=== PATIENT | female | born 1995 | race Caucasian/White ===

== ENCOUNTER 2018-03-11 07:58 | Emergency (ER) | payer SELFPAY ==
[~2018-03-11] VITALS: Ht 157.5 cm; Wt 45.5 kg
[2018-03-11] MEDS ORDERED: ondansetron/PF 4mg/2ml inj IV ONE (08:15)
[2018-03-11] MEDS ORDERED: normal saline 1000ML IV soln IVB ONE ×2 (08:15→09:00)
[2018-03-11] MEDS ORDERED: insulin glargine (Lantus) pen - multi-dose SQ ONE (08:20)
[2018-03-11] MEDS ORDERED: insulin regular, human 10 units/0.1 ml syringe IV ONE (08:20)
[2018-03-11] MEDS ORDERED: morphine 4 MG/ML inj SYRINge IV ONE ×2 (08:50→10:00)
[2018-03-11] MEDS ORDERED: ESCI5TAB PO (08:54)
[2018-03-11 08:55] LABS: CLARITY,URINE CLEAR (Clear); COLOR,URINE STRAW (Yellow); GLUCOSE, URINE >=1000 mg/dl (Neg); KETONES,URINE 40 mg/dl (Neg); LEUKOCYTE ESTERASE ,URINE NEGATIVE (Neg); NITRITES, URINE NEGATIVE (Neg); OCCULT BLOOD,URINE NEGATIVE (Neg); PROTEIN,URINE NEGATIVE (Neg); UROBILINOGEN,URINE 0.2 E.U/dL (0.2-1.0)
[2018-03-11 08:56] LABS: UA COLLECTION TYPE CLN CATCH MIDSTREAM
[2018-03-11] MEDS ORDERED: LANTUS SQ ×2 (08:56)
[2018-03-11] MEDS ORDERED: FAMO-128 PO (09:00)
[2018-03-11] MEDS ORDERED: INSU100V11 SQ (09:00)
[2018-03-11 09:11] LABS: ALANINE AMINOTRANSFERASE 62 U/L (12-78); ALBUMIN 3.2 G/DL (3.4-5.0); ALBUMIN/GLOBULIN RATIO 0.9 (1.1-1.5); ALKALINE PHOSPHATASE 194 IU/L (46-116); ANION GAP 16 (8-16); ASPARTATE AMINO TRANSFERASE 60 U/L (10-37); BILIRUBIN,TOTAL 0.6 MG/DL (0.1-1.0); BLOOD UREA NITROGEN 19 MG/DL (7-18); BUN/CREATININE RATIO 23.8 (6.6-38.0); CALCIUM 8.8 MG/DL (8.5-10.1); CHLORIDE 92 MMOL/L (99-107); LIPASE 109 U/L (73-393); POTASSIUM 4.9 MMOL/L (3.5-5.1); SODIUM 129 MMOL/L (135-145); TOTAL CARBON DIOXIDE 21.4 MMOL/L (24-32); TOTAL PROTEIN 6.6 G/DL (6.4-8.2); eGFR 88 ML/MIN
[2018-03-11 09:13] LABS: GLUCOSE 618 MG/DL (70-104)
[2018-03-11 09:16] LABS: BACTERIA,URINE FEW /HPF (Neg); MUCUS STRANDS NONE SEEN /LPF (Neg); RBC,URINE NONE SEEN /HPF (0-2); SQUAMOUS EPITHELIAL CELL,UR FEW /LPF (FEW); WBC,URINE 0-4 /HPF (0-4)
[2018-03-11 09:32] LABS: HEMATOCRIT 36.5 % (35.0-45.0); HEMOGLOBIN 12.8 g/dl (12.0-16.0); RED BLOOD COUNT 3.71 X10'6 (4.20-5.60)
[2018-03-11 09:33] LABS: BASOPHILS % (AUTO) 0.6 % (0-1); EOSINOPHILS # (AUTO) 0.1 X10'3 (0-0.9); EOSINOPHILS % (AUTO) 2.2 % (0-6); LYMPHOCYTES # (AUTO) 1.4 X10'3 (1.1-4.8); LYMPHOCYTES % (AUTO) 22.7 % (21-51); MEAN CORPUSCULAR HEMOGLOBIN 34.4 PG (27.0-31.0); MEAN CORPUSCULAR VOLUME 98.2 FL (78-98); MEAN PLATELET VOLUME 7.6 FL (7.4-10.4); MONOCYTES # (AUTO) 0.3 X10'3 (0-0.9); MONOCYTES % (AUTO) 5.5 % (2-12); NEUTROPHILS # (AUTO) 4.2 X10'3 (1.8-7.7); RED CELL DISTRIBUTION WIDTH 11.4 % (11.5-14.5)
[2018-03-11 09:56] LABS: URINE HCG NEGATIVE (NEG)
[2018-03-11 11:03] VITALS: BP 105/65
[2018-03-11 15:01] LABS: PLATELET COUNT 350 X10'3 (140-440)
== END 2018-03-11 11:05 | disposition home or self-care (01) ==
LOC: ER 07:59
DX: E10.65 Type 1 diabetes mellitus with hyperglycemia (principal); R10.84 Generalized abdominal pain; R11.2 Nausea with vomiting, unspecified; Z88.1 Allergy status to other antibiotic agents; Z79.899 Other long term (current) drug therapy
CPT/HCPCS: 36415; 80053; 81001; 81025; 82948; 83690; 85025; 96361; 96372; 96374; 96375; 96376; 99284; J1815; J2270; J2405; J7030

== ENCOUNTER → 2018-03-25 | Emergency (ER) | payer BC, OTHER ==
[~2018-03-25] VITALS: Ht 154.9 cm; Wt 50.0 kg
[~2018-03-25] MED LIST: ESCI5TAB PO; INSU100V11 SQ; LANTUS SQ; PANT-47 PO; insulin regular, human 10 units/0.1 ml syringe SQ ONE; ketorolac trometh. 30mg/ml inj. IM ONE; normal saline 1000ML IV soln IVB ONE
[2018-03-25 19:18] LABS: BASOPHILS % (AUTO) 0.6 % (0-1); EOSINOPHILS # (AUTO) 0.1 X10'3 (0-0.9); EOSINOPHILS % (AUTO) 1.3 % (0-6); HEMATOCRIT 37.9 % (35.0-45.0); HEMOGLOBIN 12.8 g/dl (12.0-16.0); LYMPHOCYTES # (AUTO) 1.3 X10'3 (1.1-4.8); LYMPHOCYTES % (AUTO) 22.1 % (21-51); MEAN CORPUSCULAR HEMOGLOBIN 32.7 PG (27.0-31.0); MEAN CORPUSCULAR HGB CONC 33.9 % (33.0-36.5); MEAN CORPUSCULAR VOLUME 96.4 FL (78-98); MEAN PLATELET VOLUME 7.8 FL (7.4-10.4); MONOCYTES # (AUTO) 0.3 X10'3 (0-0.9); MONOCYTES % (AUTO) 4.8 % (2-12); NEUTROPHILS # (AUTO) 4.1 X10'3 (1.8-7.7); NEUTROPHILS % (AUTO) 71.2 % (42-75); PLATELET COUNT 280 X10'3 (140-440); RED BLOOD COUNT 3.93 X10'6 (4.20-5.60); RED CELL DISTRIBUTION WIDTH 11.2 % (11.5-14.5); WHITE BLOOD COUNT 5.8 X10'3 (4.5-11.0)
[2018-03-25 19:26] LABS: ALANINE AMINOTRANSFERASE 134 U/L (12-78); ALBUMIN 3.6 G/DL (3.4-5.0); ALBUMIN/GLOBULIN RATIO 0.9 (1.1-1.5); ALKALINE PHOSPHATASE 187 IU/L (46-116); ANION GAP 13 (8-16); ASPARTATE AMINO TRANSFERASE 244 U/L (10-37); BILIRUBIN,TOTAL 0.3 MG/DL (0.1-1.0); BLOOD UREA NITROGEN 15 MG/DL (7-18); BUN/CREATININE RATIO 17.2 (6.6-38.0); CALCIUM 9.7 MG/DL (8.5-10.1); CHLORIDE 96 MMOL/L (99-107); CREATININE 0.87 MG/DL (0.40-0.90); MAGNESIUM 1.8 MG/DL (1.5-2.4); POTASSIUM 4.4 MMOL/L (3.5-5.1); SODIUM 137 MMOL/L (135-145); TOTAL CARBON DIOXIDE 27.8 MMOL/L (24-32); TOTAL PROTEIN 7.5 G/DL (6.4-8.2); eGFR 80 ML/MIN
[2018-03-25 20:09] LABS: INR 0.9 INR; PARTIAL THROMBOPLASTIN TIME 23 SECONDS (22-32); PROTHROMBIN TIME 9.3 SECONDS (9.0-12.0)
[2018-03-25 20:11] LABS: CLARITY,URINE CLEAR (Clear); COLOR,URINE STRAW (Yellow); GLUCOSE, URINE >=1000 mg/dl (Neg); KETONES,URINE NEGATIVE (Neg); LEUKOCYTE ESTERASE ,URINE NEGATIVE (Neg); NITRITES, URINE NEGATIVE (Neg); OCCULT BLOOD,URINE NEGATIVE (Neg); PROTEIN,URINE NEGATIVE (Neg); UROBILINOGEN,URINE 0.2 E.U/dL (0.2-1.0)
[2018-03-25 20:16] LABS: ACETAMINOPHEN < 2.0 UG/ML (10-30); ETHANOL < 0.010 GM/DL (0.0-0.010)
[2018-03-25 20:17] LABS: URINE AMPHETAMINE SCREEN NEGATIVE (Neg); URINE BARBITUATE SCREEN NEGATIVE (Neg); URINE BENZODIAZEPINES SCREEN NEGATIVE (Neg); URINE CANNABINOID SCREEN NEGATIVE (Neg); URINE COCAINE SCREEN NEGATIVE (Neg); URINE METHADONE SCREEN NEGATIVE (Neg); URINE OPIATE SCREEN POSITIVE (Neg); URINE PHENCYCLIDINE SCREEN NEGATIVE (Neg)
[2018-03-25 20:18] LABS: GLUCOSE 483 MG/DL (70-104)
[2018-03-25 20:19] LABS: UA COLLECTION TYPE CLN CATCH MIDSTREAM
[2018-03-25 20:20] LABS: BACTERIA,URINE FEW /HPF (Neg); MUCUS STRANDS NONE SEEN /LPF (Neg); RBC,URINE NONE SEEN /HPF (0-2); SQUAMOUS EPITHELIAL CELL,UR FEW /LPF (FEW); WBC,URINE NONE SEEN /HPF (0-4)
[2018-03-25 20:44] VITALS: BP 106/68
== END | disposition home or self-care (01) ==
LOC: ER 17:30
DX: R07.9 Chest pain, unspecified (principal); R94.5 Abnormal results of liver function studies; E11.10 Type 2 diabetes mellitus with ketoacidosis without coma; Z88.1 Allergy status to other antibiotic agents; Z79.899 Other long term (current) drug therapy; Z79.4 Long term (current) use of insulin
CPT/HCPCS: 36415; 71046; 76700; 80053; 80305; 80320; 80329; 81001; 82948; 83735; 85025; 85610; 85730; 93005; 96372; 99285; J1815; J1885

== ENCOUNTER 2018-03-29 19:44 | Emergency (ER) | payer BC ==
[~2018-03-29] VITALS: Ht 165.1 cm; Wt 43.0 kg
[~2018-03-29 19:44] MED LIST changes: -insulin regular, human 10 units/0.1 ml syringe SQ ONE; -ketorolac trometh. 30mg/ml inj. IM ONE; -normal saline 1000ML IV soln IVB ONE
[2018-03-29] MEDS ORDERED: normal saline 1000ML IV soln IVB ONE ×2 (20:05→20:15)
[2018-03-29] MEDS ORDERED: ondansetron/PF 4mg/2ml inj IV ONE (20:05)
[2018-03-29] MEDS: morphine 4 MG/ML inj SYRINge IV PRN ×2 (20:18→21:21)
[2018-03-29 20:19] LABS: COLOR,URINE YELLOW (Yellow); GLUCOSE, URINE >=1000 mg/dl (Neg); KETONES,URINE 15 mg/dl (Neg); LEUKOCYTE ESTERASE ,URINE NEGATIVE (Neg); NITRITES, URINE NEGATIVE (Neg); OCCULT BLOOD,URINE NEGATIVE (Neg); PH,URINE 5.5 (4.8-8.0); PROTEIN,URINE TRACE mg/dl (Neg); UROBILINOGEN,URINE 0.2 E.U/dL (0.2-1.0)
[2018-03-29 20:23] LABS: CLARITY,URINE SLIGHTLY CLOUDY (Clear); UA COLLECTION TYPE CLN CATCH MIDSTREAM
[2018-03-29 20:24] LABS: BASOPHILS # (AUTO) 0.1 X10'3 (0-0.2); BASOPHILS % (AUTO) 0.7 % (0-1); EOSINOPHILS # (AUTO) 0.2 X10'3 (0-0.9); EOSINOPHILS % (AUTO) 2.3 % (0-6); HEMATOCRIT 39.7 % (35.0-45.0); HEMOGLOBIN 13.8 g/dl (12.0-16.0); LYMPHOCYTES # (AUTO) 2.2 X10'3 (1.1-4.8); LYMPHOCYTES % (AUTO) 28.6 % (21-51); MEAN CORPUSCULAR HEMOGLOBIN 33.3 PG (27.0-31.0); MEAN CORPUSCULAR HGB CONC 34.8 % (33.0-36.5); MEAN CORPUSCULAR VOLUME 95.6 FL (78-98); MEAN PLATELET VOLUME 7.1 FL (7.4-10.4); MONOCYTES # (AUTO) 0.4 X10'3 (0-0.9); MONOCYTES % (AUTO) 5.8 % (2-12); NEUTROPHILS # (AUTO) 4.8 X10'3 (1.8-7.7); NEUTROPHILS % (AUTO) 62.6 % (42-75); PLATELET COUNT 490 X10'3 (140-440); RED BLOOD COUNT 4.15 X10'6 (4.20-5.60); WHITE BLOOD COUNT 7.7 X10'3 (4.5-11.0)
[2018-03-29 20:25] LABS: BACTERIA,URINE 1+ /HPF (Neg); RBC,URINE NONE SEEN /HPF (0-2); SQUAMOUS EPITHELIAL CELL,UR FEW /LPF (FEW); URINE HCG NEGATIVE (NEG); WBC,URINE 0-4 /HPF (0-4)
[2018-03-29 20:35] LABS: ALANINE AMINOTRANSFERASE 87 U/L (12-78); ALBUMIN 3.3 G/DL (3.4-5.0); ALBUMIN/GLOBULIN RATIO 0.8 (1.1-1.5); ALKALINE PHOSPHATASE 170 IU/L (46-116); ANION GAP 18 (8-16); ASPARTATE AMINO TRANSFERASE 52 U/L (10-37); BILIRUBIN,TOTAL 0.2 MG/DL (0.1-1.0); BLOOD UREA NITROGEN 14 MG/DL (7-18); BUN/CREATININE RATIO 12.3 (6.6-38.0); CALCIUM 9.3 MG/DL (8.5-10.1); CHLORIDE 96 MMOL/L (99-107); CREATININE 1.14 MG/DL (0.40-0.90); GLUCOSE 225 MG/DL (70-104); LIPASE 124 U/L (73-393); POTASSIUM 3.6 MMOL/L (3.5-5.1); SODIUM 139 MMOL/L (135-145); TOTAL CARBON DIOXIDE 25.1 MMOL/L (24-32); TOTAL PROTEIN 7.2 G/DL (6.4-8.2); eGFR 59 ML/MIN
[2018-03-29] MEDS ORDERED: insulin regular, human 100 UNIT in normal saline 100ml IV soln 100 ML IV PRN ×2 (20:40)
[2018-03-29] MEDS ORDERED: metoclopramide 5 mg/ml inj IV ONE (21:10)
[2018-03-29] MEDS ORDERED: diphenhydrAMINE 50 mg/ml inj IV ONE (21:10)
[2018-03-29] MEDS: proCHLORperazine 10 MG/2 ml inj IV ONE ×2 (21:21→21:27)
[2018-03-30] MEDS ORDERED: levoFLOXACIN-Levaquin 500mg/D5 100 ML IV ONE
[2018-03-30] MEDS ORDERED: FAMO-128 PO (00:12)
[2018-03-30] MEDS: morphine 4 MG/ML inj SYRINge IV PRN (00:15)
[2018-03-30 01:45] VITALS: BP 103/58
[2018-03-30] MEDS ORDERED: HYDR-4353 PO (01:46)
[2018-03-30] MEDS ORDERED: ONDA8TAB9 PO (01:46)
== END 2018-03-30 02:14 | disposition left against medical advice (07) ==
LOC: ER 19:45
DX: R10.84 Generalized abdominal pain (principal); R11.2 Nausea with vomiting, unspecified; E86.0 Dehydration; E10.65 Type 1 diabetes mellitus with hyperglycemia; Z88.1 Allergy status to other antibiotic agents; Z79.899 Other long term (current) drug therapy
CPT/HCPCS: 36415; 74176; 80053; 81001; 81025; 82948; 83605; 83690; 84145; 85025; 87040; 96361; 96374; 96375; 96376; 99285; J1200; J1956; J2270; J2405; J2765; J7030; J0780; J1815

== ENCOUNTER → 2018-04-12 | Emergency (ER) | payer BC ==
[~2018-04-12] VITALS: Ht 165.1 cm; Wt 52.3 kg
[~2018-04-12] MED LIST changes: +CIPR-230 PO; +FAMO-128 PO; +LACT1CAP26 PO; +METR500T PO; +NICO-630 TD; +OMEG1CAP PO; -PANT-47 PO; +acetaminophen 325mg tablet PO ONE; +haloperidol lactate 5mg/ml inj IM ONE; +normal saline 1000ML IV soln IVB ONE
[2018-04-12 15:54] LABS: BASOPHILS # (AUTO) 0.1 X10'3 (0-0.2); BASOPHILS % (AUTO) 0.8 % (0-1); EOSINOPHILS # (AUTO) 0.2 X10'3 (0-0.9); EOSINOPHILS % (AUTO) 2.7 % (0-6); HEMATOCRIT 41.8 % (35.0-45.0); HEMOGLOBIN 14.1 g/dl (12.0-16.0); LYMPHOCYTES # (AUTO) 1.7 X10'3 (1.1-4.8); LYMPHOCYTES % (AUTO) 19.3 % (21-51); MEAN CORPUSCULAR HEMOGLOBIN 32.2 PG (27.0-31.0); MEAN CORPUSCULAR HGB CONC 33.7 % (33.0-36.5); MEAN CORPUSCULAR VOLUME 95.7 FL (78-98); MEAN PLATELET VOLUME 6.6 FL (7.4-10.4); MONOCYTES # (AUTO) 0.5 X10'3 (0-0.9); MONOCYTES % (AUTO) 5.9 % (2-12); NEUTROPHILS # (AUTO) 6.2 X10'3 (1.8-7.7); NEUTROPHILS % (AUTO) 71.3 % (42-75); PLATELET COUNT 457 X10'3 (140-440); RED BLOOD COUNT 4.37 X10'6 (4.20-5.60); RED CELL DISTRIBUTION WIDTH 12.7 % (11.5-14.5); WHITE BLOOD COUNT 8.8 X10'3 (4.5-11.0)
[2018-04-12 16:05] LABS: ALANINE AMINOTRANSFERASE 102 U/L (12-78); ALBUMIN 3.7 G/DL (3.4-5.0); ALBUMIN/GLOBULIN RATIO 0.9 (1.1-1.5); ALKALINE PHOSPHATASE 156 IU/L (46-116); ANION GAP 18 (8-16); ASPARTATE AMINO TRANSFERASE 135 U/L (10-37); BILIRUBIN,TOTAL 0.7 MG/DL (0.1-1.0); BLOOD UREA NITROGEN 15 MG/DL (7-18); BUN/CREATININE RATIO 15.5 (6.6-38.0); CALCIUM 9.3 MG/DL (8.5-10.1); CHLORIDE 95 MMOL/L (99-107); CREATININE 0.97 MG/DL (0.40-0.90); GLUCOSE 122 MG/DL (70-104); LIPASE 79 U/L (73-393); POTASSIUM 4.3 MMOL/L (3.5-5.1); SODIUM 135 MMOL/L (135-145); TOTAL CARBON DIOXIDE 21.7 MMOL/L (24-32); TOTAL PROTEIN 7.6 G/DL (6.4-8.2); eGFR 71 ML/MIN
[2018-04-12 16:48] LABS: CLARITY,URINE CLEAR (Clear); COLOR,URINE YELLOW (Yellow); GLUCOSE, URINE 500 mg/dl (Neg); KETONES,URINE >=80 mg/dl (Neg); LEUKOCYTE ESTERASE ,URINE NEGATIVE (Neg); NITRITES, URINE NEGATIVE (Neg); OCCULT BLOOD,URINE NEGATIVE (Neg); PH,URINE 5.5 (4.8-8.0); PROTEIN,URINE TRACE mg/dl (Neg); URINE HCG NEGATIVE (NEG); UROBILINOGEN,URINE 0.2 E.U/dL (0.2-1.0)
[2018-04-12 16:52] LABS: UA COLLECTION TYPE CLN CATCH MIDSTREAM
[2018-04-12 16:55] LABS: BACTERIA,URINE 3+ /HPF (Neg); MUCUS STRANDS FEW /LPF (Neg); RBC,URINE 0-2 /HPF (0-2); SQUAMOUS EPITHELIAL CELL,UR MANY /LPF (FEW); WBC,URINE 0-4 /HPF (0-4)
[2018-04-12 17:10] VITALS: BP 110/68
== END | disposition home or self-care (01) ==
LOC: ER 14:42
DX: R10.84 Generalized abdominal pain (principal); R11.10 Vomiting, unspecified; K50.90 Crohn's disease, unspecified, without complications; E10.9 Type 1 diabetes mellitus without complications; Z88.1 Allergy status to other antibiotic agents; Z79.899 Other long term (current) drug therapy; Z79.4 Long term (current) use of insulin
CPT/HCPCS: 36415; 80053; 81001; 81025; 83690; 85025; 96360; 96372; 99284; J1630; J7030

== ENCOUNTER 2018-05-17 22:58 | Emergency (ER) | payer BC ==
[~2018-05-17] VITALS: Ht 165.1 cm; Wt 50.0 kg
[~2018-05-17 22:58] MED LIST changes: -CIPR-230 PO; -METR500T PO; -acetaminophen 325mg tablet PO ONE; -haloperidol lactate 5mg/ml inj IM ONE; -normal saline 1000ML IV soln IVB ONE
[2018-05-17 23:30] LABS: BASOPHILS % (AUTO) 0.8 % (0-1); EOSINOPHILS # (AUTO) 0.2 X10'3 (0-0.9); EOSINOPHILS % (AUTO) 3.1 % (0-6); HEMATOCRIT 41.5 % (35.0-45.0); LYMPHOCYTES # (AUTO) 1.9 X10'3 (1.1-4.8); LYMPHOCYTES % (AUTO) 30.6 % (21-51); MEAN CORPUSCULAR HEMOGLOBIN 31.4 PG (27.0-31.0); MEAN CORPUSCULAR HGB CONC 33.7 % (33.0-36.5); MEAN CORPUSCULAR VOLUME 93.4 FL (78-98); MEAN PLATELET VOLUME 6.9 FL (7.4-10.4); MONOCYTES # (AUTO) 0.4 X10'3 (0-0.9); MONOCYTES % (AUTO) 6.8 % (2-12); NEUTROPHILS # (AUTO) 3.7 X10'3 (1.8-7.7); NEUTROPHILS % (AUTO) 58.7 % (42-75); PLATELET COUNT 426 X10'3 (140-440); RED BLOOD COUNT 4.44 X10'6 (4.20-5.60); RED CELL DISTRIBUTION WIDTH 12.6 % (11.5-14.5); WHITE BLOOD COUNT 6.3 X10'3 (4.5-11.0)
[2018-05-17] MEDS ORDERED: normal saline 1000ML IV soln IVB ONE (23:30)
[2018-05-17] MEDS ORDERED: ondansetron/PF 4mg/2ml inj IV ONE (23:30)
[2018-05-18 00:02] LABS: PROTHROMBIN TIME 9.8 SECONDS (9.0-12.0)
[2018-05-18 00:20] LABS: ALANINE AMINOTRANSFERASE 33 U/L (12-78); ALBUMIN 3.6 G/DL (3.4-5.0); ALBUMIN/GLOBULIN RATIO 0.9 (1.1-1.5); ALKALINE PHOSPHATASE 160 IU/L (46-116); ANION GAP 17 (8-16); ASPARTATE AMINO TRANSFERASE 29 U/L (10-37); BILIRUBIN,TOTAL 0.6 MG/DL (0.1-1.0); BLOOD UREA NITROGEN 14 MG/DL (7-18); BUN/CREATININE RATIO 14.7 (6.6-38.0); CALCIUM 9.5 MG/DL (8.5-10.1); CHLORIDE 89 MMOL/L (99-107); CREATININE 0.95 MG/DL (0.40-0.90); POTASSIUM 4.8 MMOL/L (3.5-5.1); SODIUM 128 MMOL/L (135-145); TOTAL CARBON DIOXIDE 22.1 MMOL/L (24-32); TOTAL PROTEIN 7.5 G/DL (6.4-8.2); eGFR 72 ML/MIN
[2018-05-18 00:22] LABS: COLOR,URINE YELLOW (Yellow); GLUCOSE, URINE >=1000 mg/dl (Neg); KETONES,URINE 40 mg/dl (Neg); LEUKOCYTE ESTERASE ,URINE NEGATIVE (Neg); NITRITES, URINE NEGATIVE (Neg); OCCULT BLOOD,URINE LARGE (Neg); PH,URINE 5.5 (4.8-8.0); PROTEIN,URINE NEGATIVE (Neg); UROBILINOGEN,URINE 0.2 E.U/dL (0.2-1.0)
[2018-05-18 00:24] LABS: GLUCOSE 575 MG/DL (70-104)
[2018-05-18 00:25] LABS: URINE HCG NEGATIVE (NEG)
[2018-05-18 00:30] LABS: UA COLLECTION TYPE VOIDED
[2018-05-18 00:31] LABS: CLARITY,URINE SLIGHTLY CLOUDY (Clear)
[2018-05-18 00:32] LABS: BACTERIA,URINE FEW /HPF (Neg); RBC,URINE 20-50 /HPF (0-2); SQUAMOUS EPITHELIAL CELL,UR FEW /LPF (FEW); WBC,URINE 0-4 /HPF (0-4)
[2018-05-18] MEDS ORDERED: insulin regular, human 10 units/0.1 ml syringe SQ ONE (01:40)
[2018-05-18 02:24] VITALS: BP 118/64
== END 2018-05-18 02:28 | disposition home or self-care (01) ==
LOC: ER 22:59
DX: R10.84 Generalized abdominal pain (principal); R11.10 Vomiting, unspecified; E11.9 Type 2 diabetes mellitus without complications; Z79.899 Other long term (current) drug therapy; Z88.1 Allergy status to other antibiotic agents; Z79.4 Long term (current) use of insulin
CPT/HCPCS: 36415; 80053; 81001; 81025; 85025; 85610; 96372; 96374; 99283; J1815; J2405; J7030; 81003

== ENCOUNTER 2018-05-19 12:21 | Inpatient (IN) | payer BC ==
[~2018-05-19] VITALS: Ht 165.1 cm; Wt 50.0 kg
[2018-05-19] MEDS ORDERED: normal saline 1000ML IV soln IVB ONE ×2 (12:25→13:20)
[2018-05-19 12:37] LABS: BASOPHILS % (AUTO) 0.3 % (0-1); EOSINOPHILS # (AUTO) 0.3 X10'3 (0-0.9); EOSINOPHILS % (AUTO) 2.4 % (0-6); HEMATOCRIT 42.2 % (35.0-45.0); HEMOGLOBIN 14.1 g/dl (12.0-16.0); LYMPHOCYTES # (AUTO) 1.8 X10'3 (1.1-4.8); LYMPHOCYTES % (AUTO) 16.5 % (21-51); MEAN CORPUSCULAR HEMOGLOBIN 31.8 PG (27.0-31.0); MEAN CORPUSCULAR HGB CONC 33.5 % (33.0-36.5); MEAN CORPUSCULAR VOLUME 94.8 FL (78-98); MEAN PLATELET VOLUME 6.8 FL (7.4-10.4); MONOCYTES # (AUTO) 0.3 X10'3 (0-0.9); MONOCYTES % (AUTO) 3.2 % (2-12); NEUTROPHILS # (AUTO) 8.3 X10'3 (1.8-7.7); NEUTROPHILS % (AUTO) 77.6 % (42-75); PLATELET COUNT 432 X10'3 (140-440); RED BLOOD COUNT 4.45 X10'6 (4.20-5.60); RED CELL DISTRIBUTION WIDTH 12.8 % (11.5-14.5); WHITE BLOOD COUNT 10.7 X10'3 (4.5-11.0)
[2018-05-19 12:53] LABS: ALANINE AMINOTRANSFERASE 31 U/L (12-78); ALBUMIN 3.7 G/DL (3.4-5.0); ALBUMIN/GLOBULIN RATIO 0.9 (1.1-1.5); ALKALINE PHOSPHATASE 173 IU/L (46-116); ANION GAP 30 (8-16); ASPARTATE AMINO TRANSFERASE 37 U/L (10-37); BILIRUBIN,TOTAL 0.7 MG/DL (0.1-1.0); BLOOD UREA NITROGEN 15 MG/DL (7-18); BUN/CREATININE RATIO 12.8 (6.6-38.0); CALCIUM 9.1 MG/DL (8.5-10.1); CHLORIDE 91 MMOL/L (99-107); CREATININE 1.17 MG/DL (0.40-0.90); LIPASE 104 U/L (73-393); MAGNESIUM 1.7 MG/DL (1.5-2.4); POTASSIUM 4.1 MMOL/L (3.5-5.1); SODIUM 132 MMOL/L (135-145); TOTAL PROTEIN 7.7 G/DL (6.4-8.2); eGFR 56 ML/MIN
[2018-05-19 12:55] LABS: TOTAL CARBON DIOXIDE 11.5 MMOL/L (24-32)
[2018-05-19 12:56] LABS: GLUCOSE 563 MG/DL (70-104)
[2018-05-19] MEDS ORDERED: insulin regular, DKA only 100 UNIT in normal saline 100ml IV soln 99 ML IV SCH ×2 (14:53)
[2018-05-19] MEDS ORDERED: sodium bicarbonate (8.4%) inj. 100 MEQ in dextrose 5% water 500ml 500 ML IV PRN (14:53)
[2018-05-19] MEDS ORDERED: normal saline 1000ml 1,000 ML IV SCH (14:53)
[2018-05-19] MEDS ORDERED: sodium bicarbonate (8.4%) inj. 50 MEQ in dextrose 5% water 500ml 250 ML IV PRN (14:53)
[2018-05-19] MEDS ORDERED: potassium Cl 20 mEq SR tablet PO PRN ×4 (14:55)
[2018-05-19] MEDS ORDERED: ondansetron/PF 4mg/2ml inj IV PRN (14:55)
[2018-05-19] MEDS ORDERED: magnesium Cl slow-release 64mg tablet PO PRN (14:55)
[2018-05-19] MEDS ORDERED: magnesium 4gm in 100ml NS 100 ML IV PRN (14:55)
[2018-05-19] MEDS ORDERED: K and/or MAG REPLACEMENT MC SCH (14:55)
[2018-05-19] MEDS ORDERED: sodium phosphate inj. 15 MMOL in dextrose 5%-water 150 ML IV PRN (14:55)
[2018-05-19] MEDS ORDERED: Neutra Phos packet PO PRN (14:55)
[2018-05-19] MEDS ORDERED: sodium phosphate inj. 30 MMOL in dextrose 5%-water 250 ML IV PRN (14:55)
[2018-05-19] MEDS ORDERED: magnesium hydroxide 30ml (MOM) UD suspension PO PRN (14:55)
[2018-05-19] MEDS ORDERED: acetaminophen 325mg tablet PO PRN ×2 (14:55)
[2018-05-19] MEDS ORDERED: insulin regular, human vial - multi-dose IV PRN (14:55)
[2018-05-19] MEDS ORDERED: mag hydrox/Alum hydrox/simeth 30ml oral suspension PO PRN (14:55)
[2018-05-19] MEDS ORDERED: potassium Cl 40MEQ/NS 500ml 500 ML IV PRN ×4 (14:55)
[2018-05-19] MEDS: HYDROcodone/acetaminophen 10/325mg tab PO PRN (15:23)
[2018-05-19 15:34] LABS: CLARITY,URINE CLEAR (Clear); COLOR,URINE YELLOW (Yellow); GLUCOSE, URINE >=1000 mg/dl (Neg); KETONES,URINE >=80 mg/dl (Neg); LEUKOCYTE ESTERASE ,URINE NEGATIVE (Neg); NITRITES, URINE NEGATIVE (Neg); OCCULT BLOOD,URINE LARGE (Neg); PROTEIN,URINE NEGATIVE (Neg); UROBILINOGEN,URINE 0.2 E.U/dL (0.2-1.0)
[2018-05-19 15:39] LABS: UA COLLECTION TYPE CLN CATCH MIDSTREAM
[2018-05-19 15:40] LABS: BACTERIA,URINE FEW /HPF (Neg); MUCUS STRANDS NONE SEEN /LPF (Neg); SQUAMOUS EPITHELIAL CELL,UR FEW /LPF (FEW); WBC,URINE NONE SEEN /HPF (0-4)
[2018-05-19 15:46] LABS: ALBUMIN 2.7 G/DL (3.4-5.0); ANION GAP 18 (8-16); BLOOD UREA NITROGEN 10 MG/DL (7-18); BUN/CREATININE RATIO 9.6 (6.6-38.0); CALCIUM 7.3 MG/DL (8.5-10.1); CHLORIDE 106 MMOL/L (99-107); CREATININE 1.04 MG/DL (0.40-0.90); GLUCOSE 103 MG/DL (70-104); PHOSPHORUS 1.8 MG/DL (2.3-4.5); POTASSIUM 4.1 MMOL/L (3.5-5.1); SODIUM 139 MMOL/L (135-145); TOTAL CARBON DIOXIDE 15.3 MMOL/L (24-32); eGFR 65 ML/MIN
[2018-05-19] MEDS: potassium CL 20mEq in D5-1/2NS 1,000 ML IV PRN ×4 (15:52→20:08)
[2018-05-19] MEDS: sucralfate 1gm/10ml UD suspension PO SCH ×2 (16:00→20:22)
[2018-05-19 17:28] VITALS: BP 95/56
[2018-05-19] MEDS: HYDROcodone/acetaminophen 5mg/325mg tablet PO PRN ×2 (17:56→21:59)
[2018-05-19 19:23] LABS: ALBUMIN 2.7 G/DL (3.4-5.0); ANION GAP 10 (8-16); BLOOD UREA NITROGEN 8 MG/DL (7-18); BUN/CREATININE RATIO 9.5 (6.6-38.0); CALCIUM 7.5 MG/DL (8.5-10.1); CHLORIDE 107 MMOL/L (99-107); CREATININE 0.84 MG/DL (0.40-0.90); GLUCOSE 97 MG/DL (70-104); PHOSPHORUS 2.3 MG/DL (2.3-4.5); POTASSIUM 3.9 MMOL/L (3.5-5.1); SODIUM 138 MMOL/L (135-145); TOTAL CARBON DIOXIDE 21.1 MMOL/L (24-32); eGFR 83 ML/MIN
[2018-05-19] MEDS: pantoprazole 40 MG vial IV SCH (20:07)
[2018-05-19] MEDS ORDERED: temazepam 15mg capsule PO PRN (21:00)
[2018-05-19 23:00] VITALS: BP 90/63
[2018-05-19 23:41] LABS: ALBUMIN 2.5 G/DL (3.4-5.0); ANION GAP 8 (8-16); BLOOD UREA NITROGEN 6 MG/DL (7-18); BUN/CREATININE RATIO 6.9 (6.6-38.0); CALCIUM 7.5 MG/DL (8.5-10.1); CHLORIDE 106 MMOL/L (99-107); CREATININE 0.87 MG/DL (0.40-0.90); GLUCOSE 145 MG/DL (70-104); PHOSPHORUS 2.7 MG/DL (2.3-4.5); POTASSIUM 4.2 MMOL/L (3.5-5.1); SODIUM 137 MMOL/L (135-145); TOTAL CARBON DIOXIDE 23.3 MMOL/L (24-32); eGFR 79 ML/MIN
[2018-05-20] MEDS ORDERED: dextrose 50%-water 50ml dispensing syringe IV PRN (00:25)
[2018-05-20] MEDS ORDERED: dextrose ORAL solution 15 GM/59 ML bottle PO PRN ×2 (00:25)
[2018-05-20] MEDS ORDERED: glucagon, human recombinant 1mg kit SUBCUT PRN (00:25)
[2018-05-20] MEDS ORDERED: MESSAGE TO PHARMACY PO ONE (00:25)
[2018-05-20] MEDS: insulin Lispro (HumaLOG) vial - multi-dose SQ SCH ×5 (00:57→19:26)
[2018-05-20 03:00] VITALS: BP 91/54
[2018-05-20] MEDS: HYDROcodone/acetaminophen 5mg/325mg tablet PO PRN ×4 (05:44→20:21)
[2018-05-20 06:33] LABS: ALBUMIN 2.5 G/DL (3.4-5.0); ANION GAP 11 (8-16); BLOOD UREA NITROGEN 9 MG/DL (7-18); BUN/CREATININE RATIO 11.1 (6.6-38.0); CALCIUM 8.3 MG/DL (8.5-10.1); CHLORIDE 102 MMOL/L (99-107); CREATININE 0.81 MG/DL (0.40-0.90); GLUCOSE 330 MG/DL (70-104); MAGNESIUM 1.6 MG/DL (1.5-2.4); PHOSPHORUS 3.2 MG/DL (2.3-4.5); POTASSIUM 4.3 MMOL/L (3.5-5.1); SODIUM 133 MMOL/L (135-145); TOTAL CARBON DIOXIDE 20.4 MMOL/L (24-32); eGFR 86 ML/MIN
[2018-05-20 07:00] VITALS: BP 96/54
[2018-05-20] MEDS: sucralfate 1gm/10ml UD suspension PO SCH ×4 (07:36→20:15)
[2018-05-20] MEDS: pantoprazole 40 MG vial IV SCH ×2 (07:36→20:15)
[2018-05-20] MEDS: citalopram 20mg tablet PO SCH (07:37)
[2018-05-20] MEDS: K and/or MAG REPLACEMENT MC SCH (08:00)
[2018-05-20] MEDS ORDERED: ESCITALOPRAM OXALATE 10 MG PO SCH (08:00)
[2018-05-20] MEDS ORDERED: insulin glargine (Lantus) pen - multi-dose SQ ONE (08:10)
[2018-05-20] MEDS ORDERED: FLU VACC QUAD 2018(5 YR UP)/PF 60 MCG/0.5 ML SYRINGE IM ONE (10:00)
[2018-05-20 11:00] VITALS: BP 137/87
[2018-05-20] MEDS: normal saline 1000ml 1,000 ML IV SCH ×2 (11:52→23:32)
[2018-05-20] MEDS: nicotine 14mg patch - 24hr TD SCH (14:20)
[2018-05-20 14:48] LABS: H PYLORI ANTIBODY NEGATIVE (Neg)
[2018-05-20 15:00] VITALS: BP 98/58
[2018-05-20 17:45] LABS: ALBUMIN 2.7 G/DL (3.4-5.0); ANION GAP 8 (8-16); BLOOD UREA NITROGEN 10 MG/DL (7-18); BUN/CREATININE RATIO 13.2 (6.6-38.0); CALCIUM 8.5 MG/DL (8.5-10.1); CHLORIDE 103 MMOL/L (99-107); CREATININE 0.76 MG/DL (0.40-0.90); GLUCOSE 89 MG/DL (70-104); POTASSIUM 3.9 MMOL/L (3.5-5.1); SODIUM 137 MMOL/L (135-145); TOTAL CARBON DIOXIDE 25.6 MMOL/L (24-32); eGFR > 90 ML/MIN
[2018-05-20 19:00] VITALS: BP 117/73
[2018-05-20] MEDS: diatr meglu/diatrizoate 30ml oral sol.-(3 dose) bottle PO SCH (20:16)
[2018-05-20] MEDS ORDERED: insulin glargine (Lantus) pen - multi-dose SQ SCH (21:00)
[2018-05-20 23:00] VITALS: BP 116/74
[2018-05-20] MEDS: insulin glargine (Lantus) pen - multi-dose SQ SCH (23:32)
[2018-05-21] VITALS (10 sets, daily range): BP systolic 105–130; BP diastolic 68–85
[2018-05-21] MEDS: HYDROcodone/acetaminophen 10/325mg tab PO PRN ×2 (00:44→20:40)
[2018-05-21 06:02] LABS: BASOPHILS % (AUTO) 0.5 % (0-1); EOSINOPHILS # (AUTO) 0.1 X10'3 (0-0.9); EOSINOPHILS % (AUTO) 3.3 % (0-6); HEMATOCRIT 30.7 % (35.0-45.0); HEMOGLOBIN 10.4 g/dl (12.0-16.0); LYMPHOCYTES # (AUTO) 1.9 X10'3 (1.1-4.8); LYMPHOCYTES % (AUTO) 41.9 % (21-51); MEAN CORPUSCULAR VOLUME 94.2 FL (78-98); MEAN PLATELET VOLUME 7.1 FL (7.4-10.4); MONOCYTES # (AUTO) 0.3 X10'3 (0-0.9); MONOCYTES % (AUTO) 7.4 % (2-12); NEUTROPHILS # (AUTO) 2.1 X10'3 (1.8-7.7); NEUTROPHILS % (AUTO) 46.9 % (42-75); PLATELET COUNT 245 X10'3 (140-440); RED BLOOD COUNT 3.26 X10'6 (4.20-5.60); RED CELL DISTRIBUTION WIDTH 12.5 % (11.5-14.5); WHITE BLOOD COUNT 4.5 X10'3 (4.5-11.0)
[2018-05-21 06:12] LABS: ALANINE AMINOTRANSFERASE 25 U/L (12-78); ALBUMIN 2.6 G/DL (3.4-5.0); ALBUMIN/GLOBULIN RATIO 0.9 (1.1-1.5); ALKALINE PHOSPHATASE 116 IU/L (46-116); ANION GAP 8 (8-16); ASPARTATE AMINO TRANSFERASE 37 U/L (10-37); BILIRUBIN,TOTAL 0.1 MG/DL (0.1-1.0); BLOOD UREA NITROGEN 12 MG/DL (7-18); CALCIUM 8.4 MG/DL (8.5-10.1); CHLORIDE 102 MMOL/L (99-107); GLUCOSE 215 MG/DL (70-104); MAGNESIUM 1.6 MG/DL (1.5-2.4); SODIUM 139 MMOL/L (135-145); TOTAL CARBON DIOXIDE 29.3 MMOL/L (24-32); TOTAL PROTEIN 5.4 G/DL (6.4-8.2); eGFR > 90 ML/MIN
[2018-05-21] MEDS: normal saline 1000ml 1,000 ML IV SCH ×2 (06:30→17:17)
[2018-05-21] MEDS: sucralfate 1gm/10ml UD suspension PO SCH ×4 (06:57→20:39)
[2018-05-21] MEDS: K and/or MAG REPLACEMENT MC SCH (07:02)
[2018-05-21] MEDS: diatr meglu/diatrizoate 30ml oral sol.-(3 dose) bottle PO SCH ×2 (07:18→11:39)
[2018-05-21] MEDS: citalopram 20mg tablet PO SCH (07:20)
[2018-05-21] MEDS: pantoprazole 40 MG vial IV SCH (07:22)
[2018-05-21] MEDS: nicotine 14mg patch - 24hr TD SCH (07:22)
[2018-05-21] MEDS: insulin glargine (Lantus) pen - multi-dose SQ SCH ×2 (07:40→20:45)
[2018-05-21] MEDS ORDERED: nicotine 14mg patch - 24hr TD SCH (08:00)
[2018-05-21] MEDS ORDERED: fentaNYL/PF 50MCG/1 ML 2ML syringe ONE (08:28)
[2018-05-21] MEDS ORDERED: LIDOcaine Viscous 15ml cup ONE (08:28)
[2018-05-21] MEDS ORDERED: MIDAZolam 5mg/5ml vial ONE (08:28)
[2018-05-21] MEDS ORDERED: iohexol 300mg/ml 100ml inj. ONE (11:35)
[2018-05-21] MEDS: dextrose 50%-water 50ml dispensing syringe IV PRN (11:46)
[2018-05-21] MEDS: HYDROcodone/acetaminophen 5mg/325mg tablet PO PRN (16:08)
[2018-05-21] MEDS: insulin Lispro (HumaLOG) vial - multi-dose SQ SCH (18:53)
[2018-05-21] MEDS: pantoprazole 40mg Tablet.DR PO SCH (20:40)
[2018-05-22] MEDS: dextrose 50%-water 50ml dispensing syringe IV PRN (01:50)
[2018-05-22] MEDS: normal saline 1000ml 1,000 ML IV SCH ×2 (02:46→12:11)
[2018-05-22 03:00] VITALS: BP 94/60
[2018-05-22 06:00] VITALS: BP 113/78
[2018-05-22 06:13] LABS: BASOPHILS % (AUTO) 0.6 % (0-1); EOSINOPHILS # (AUTO) 0.1 X10'3 (0-0.9); EOSINOPHILS % (AUTO) 3.5 % (0-6); HEMATOCRIT 30.6 % (35.0-45.0); HEMOGLOBIN 10.4 g/dl (12.0-16.0); LYMPHOCYTES # (AUTO) 1.6 X10'3 (1.1-4.8); LYMPHOCYTES % (AUTO) 39.7 % (21-51); MEAN CORPUSCULAR HEMOGLOBIN 31.6 PG (27.0-31.0); MONOCYTES # (AUTO) 0.4 X10'3 (0-0.9); MONOCYTES % (AUTO) 9.7 % (2-12); NEUTROPHILS # (AUTO) 1.8 X10'3 (1.8-7.7); NEUTROPHILS % (AUTO) 46.5 % (42-75); PLATELET COUNT 250 X10'3 (140-440); RED BLOOD COUNT 3.29 X10'6 (4.20-5.60); RED CELL DISTRIBUTION WIDTH 12.5 % (11.5-14.5); WHITE BLOOD COUNT 3.9 X10'3 (4.5-11.0)
[2018-05-22 06:29] LABS: ALANINE AMINOTRANSFERASE 61 U/L (12-78); ALBUMIN 2.5 G/DL (3.4-5.0); ALBUMIN/GLOBULIN RATIO 0.9 (1.1-1.5); ALKALINE PHOSPHATASE 120 IU/L (46-116); ANION GAP 7 (8-16); ASPARTATE AMINO TRANSFERASE 137 U/L (10-37); BILIRUBIN,TOTAL 0.1 MG/DL (0.1-1.0); BLOOD UREA NITROGEN 10 MG/DL (7-18); BUN/CREATININE RATIO 17.9 (6.6-38.0); CALCIUM 8.3 MG/DL (8.5-10.1); CHLORIDE 103 MMOL/L (99-107); CREATININE 0.56 MG/DL (0.40-0.90); GLUCOSE 123 MG/DL (70-104); MAGNESIUM 1.5 MG/DL (1.5-2.4); POTASSIUM 3.9 MMOL/L (3.5-5.1); SODIUM 141 MMOL/L (135-145); TOTAL CARBON DIOXIDE 31.4 MMOL/L (24-32); TOTAL PROTEIN 5.3 G/DL (6.4-8.2); eGFR > 90 ML/MIN
[2018-05-22] MEDS: citalopram 20mg tablet PO SCH (07:21)
[2018-05-22] MEDS: sucralfate 1gm/10ml UD suspension PO SCH ×3 (07:21→16:00)
[2018-05-22] MEDS: nicotine 14mg patch - 24hr TD SCH (07:21)
[2018-05-22] MEDS: pantoprazole 40mg Tablet.DR PO SCH (07:21)
[2018-05-22] MEDS: insulin glargine (Lantus) pen - multi-dose SQ SCH (07:36)
[2018-05-22] MEDS: K and/or MAG REPLACEMENT MC SCH (08:00)
[2018-05-22] MEDS: HYDROcodone/acetaminophen 10/325mg tab PO PRN ×2 (09:12→13:18)
[2018-05-22 11:00] VITALS: BP 114/70
[2018-05-22] MEDS ORDERED: SUCR1TAB PO (14:50)
[2018-05-22] MEDS ORDERED: PANT40TA4 PO (14:50)
[2018-05-22] MEDS ORDERED: DOCU-28 PO (14:50)
[2018-05-22] MEDS ORDERED: HYDR-3972 PO (14:50)
== END 2018-05-22 16:50 | disposition home or self-care (01) | DRG 391 ==
LOC: ER 12:21 → ED HOLD 14:53 → PCU 3S 16:30 → CMPBEDREQ 05-20 19:43
PROVIDERS: ADMIT Family Medicine; ATTEND Internal Medicine
PROC: 0DB68ZX Excision of Stomach, Via Natural or Artificial Opening Endoscopic, Diagnostic (ICD-10-PCS; principal; 2018-05-21)
PROC: BW211ZZ Computerized Tomography (CT Scan) of Abdomen and Pelvis using Low Osmolar Contrast (ICD-10-PCS; 2018-05-21)
DX: K29.00 Acute gastritis without bleeding (principal); E10.10 Type 1 diabetes mellitus with ketoacidosis without coma; E87.1 Hypo-osmolality and hyponatremia; K21.9 Gastro-esophageal reflux disease without esophagitis; E03.9 Hypothyroidism, unspecified; G89.29 Other chronic pain; E83.39 Other disorders of phosphorus metabolism; F17.210 Nicotine dependence, cigarettes, uncomplicated; F32.9 Major depressive disorder, single episode, unspecified; R16.0 Hepatomegaly, not elsewhere classified; N83.209 Unspecified ovarian cyst, unspecified side; Z79.4 Long term (current) use of insulin; Z83.79 Family history of other diseases of the digestive system; Z91.19 Patient's noncompliance with other medical treatment and regimen; Z28.21 Immunization not carried out because of patient refusal; Z88.1 Allergy status to other antibiotic agents; Z79.899 Other long term (current) drug therapy; Z82.49 Family history of ischemic heart disease and other diseases of the circulatory system; Z84.89 Family history of other specified conditions; Z71.6 Tobacco abuse counseling
CPT/HCPCS: 36415; 43239; 74177; 80048; 80053; 81001; 82800; 82948; 83036; 83690; 83735; 84100; 84443; 85025; 86677; 87070; 93005; 99152; A4620; C9113; G0378; J1815; J2250; J3010; J7030; Q2037; Q9963; Q9967

== ENCOUNTER 2018-05-29 13:36 | Emergency (ER) | payer BC ==
[~2018-05-29] VITALS: Ht 165.1 cm; Wt 55.0 kg
[~2018-05-29 13:36] MED LIST changes: +DOCU-28 PO; -FAMO-128 PO; +HYDR-3972 PO; -NICO-630 TD; +PANT40TA4 PO; +SUCR1TAB PO
[2018-05-29 13:46] VITALS: BP 117/76
[2018-05-29] MEDS ORDERED: SUCR1TAB34 PO (16:43)
[2018-05-29] MEDS ORDERED: PANT-47 PO (16:43)
[2018-05-29] MEDS ORDERED: HYDR-4353 PO (16:43)
== END 2018-05-29 16:50 | disposition home or self-care (01) ==
LOC: ER 13:37
DX: K29.70 Gastritis, unspecified, without bleeding (principal); E11.9 Type 2 diabetes mellitus without complications; Z76.0 Encounter for issue of repeat prescription; Z79.4 Long term (current) use of insulin; Z88.1 Allergy status to other antibiotic agents; Z79.899 Other long term (current) drug therapy
CPT/HCPCS: 99283

== ENCOUNTER 2018-06-13 13:17 | Inpatient (IN) | payer BC ==
[~2018-06-13] VITALS: Ht 165.1 cm; Wt 47.5 kg
[~2018-06-13 13:17] MED LIST changes: +PANT-47 PO; +SUCR1TAB34 PO
[2018-06-13 14:22] LABS: BASOPHILS % (AUTO) 0.3 % (0-1); EOSINOPHILS # (AUTO) 0.1 X10'3 (0-0.9); EOSINOPHILS % (AUTO) 1.9 % (0-6); HEMOGLOBIN 13.8 g/dl (12.0-16.0); LYMPHOCYTES # (AUTO) 1.3 X10'3 (1.1-4.8); LYMPHOCYTES % (AUTO) 19.3 % (21-51); MEAN CORPUSCULAR HEMOGLOBIN 31.6 PG (27.0-31.0); MEAN CORPUSCULAR HGB CONC 33.6 % (33.0-36.5); MEAN CORPUSCULAR VOLUME 94.2 FL (78-98); MEAN PLATELET VOLUME 7.2 FL (7.4-10.4); MONOCYTES # (AUTO) 0.3 X10'3 (0-0.9); MONOCYTES % (AUTO) 4.4 % (2-12); NEUTROPHILS # (AUTO) 4.9 X10'3 (1.8-7.7); NEUTROPHILS % (AUTO) 74.1 % (42-75); PLATELET COUNT 384 X10'3 (140-440); RED BLOOD COUNT 4.35 X10'6 (4.20-5.60); RED CELL DISTRIBUTION WIDTH 13.2 % (11.5-14.5); WHITE BLOOD COUNT 6.6 X10'3 (4.5-11.0)
[2018-06-13 14:39] LABS: ALANINE AMINOTRANSFERASE 27 U/L (12-78); ALBUMIN 3.9 G/DL (3.4-5.0); ALBUMIN/GLOBULIN RATIO 1.1 (1.1-1.5); ALKALINE PHOSPHATASE 149 IU/L (46-116); ANION GAP 26 (8-16); ASPARTATE AMINO TRANSFERASE 23 U/L (10-37); BILIRUBIN,TOTAL 0.6 MG/DL (0.1-1.0); BLOOD UREA NITROGEN 14 MG/DL (7-18); BUN/CREATININE RATIO 13.2 (6.6-38.0); CHLORIDE 95 MMOL/L (99-107); CREATININE 1.06 MG/DL (0.40-0.90); GLUCOSE 367 MG/DL (70-104); POTASSIUM 4.3 MMOL/L (3.5-5.1); SODIUM 134 MMOL/L (135-145); TOTAL PROTEIN 7.4 G/DL (6.4-8.2); eGFR 63 ML/MIN
[2018-06-13] MEDS ORDERED: ketorolac trometh. 30mg/ml inj. IV ONE (14:40)
[2018-06-13] MEDS ORDERED: insulin regular, human 10 units/0.1 ml syringe IV ONE (14:40)
[2018-06-13] MEDS ORDERED: metoclopramide 5 mg/ml inj IV ONE (14:40)
[2018-06-13] MEDS ORDERED: diphenhydrAMINE 50 mg/ml inj IV ONE (14:40)
[2018-06-13 14:41] LABS: PROTHROMBIN TIME 10.3 SECONDS (9.0-12.0)
[2018-06-13 14:44] LABS: TOTAL CARBON DIOXIDE 13.1 MMOL/L (24-32)
--- NOTE | 2018-06-13 14:44 | NUR ---
AMINA FROM LAB CALLED REPORTED CO2 13.1
[2018-06-13] MEDS ORDERED: insulin regular, human 100 UNIT in normal saline 100ml IV soln 100 ML IV PRN ×2 (14:50)
[2018-06-13] MEDS ORDERED: acetaminophen 325mg tablet PO PRN ×2 (14:55)
[2018-06-13] MEDS ORDERED: sodium phosphate inj. 15 MMOL in dextrose 5%-water 150 ML IV PRN (14:55)
[2018-06-13] MEDS ORDERED: potassium Cl 20 mEq SR tablet PO PRN (14:55)
[2018-06-13] MEDS ORDERED: magnesium hydroxide 30ml (MOM) UD suspension PO PRN (14:55)
[2018-06-13] MEDS ORDERED: potassium Cl 40MEQ/NS 500ml 500 ML IV PRN ×2 (14:55)
[2018-06-13] MEDS ORDERED: sodium phosphate inj. 30 MMOL in dextrose 5%-water 250 ML IV PRN (14:55)
[2018-06-13] MEDS ORDERED: Neutra Phos packet PO PRN (14:55)
[2018-06-13] MEDS ORDERED: potassium CL 20mEq in D5-1/2NS 1,000 ML IV PRN (14:55)
[2018-06-13] MEDS ORDERED: insulin regular, DKA only 100 UNIT in normal saline 100ml IV soln 99 ML IV SCH ×2 (14:55)
[2018-06-13] MEDS ORDERED: ondansetron/PF 4mg/2ml inj IV PRN (14:55)
[2018-06-13] MEDS ORDERED: mag hydrox/Alum hydrox/simeth 30ml oral suspension PO PRN (14:55)
[2018-06-13] MEDS ORDERED: insulin regular, human vial - multi-dose IV PRN (14:55)
[2018-06-13] MEDS ORDERED: insulin regular, human 10 units/0.1 ml syringe IV PRN (15:22)
[2018-06-13] MEDS: normal saline 1000ml 1,000 ML IV SCH ×3 (15:27→22:55)
[2018-06-13 15:53] LABS: PHOSPHORUS 3.6 MG/DL (2.3-4.5)
--- NOTE | 2018-06-13 16:42 | NUR ---
Patient in room ED 10. I have received report from MERVIN Dumont and had the opportunity to ask questions and assume patient care. PT WILL BE TRANSFERRED TO PCU ROOM 3019.
[2018-06-13 17:30] VITALS: BP 93/49
--- NOTE | 2018-06-13 17:49 | NUR ---
PT ARRIVED ON PCU UNIT AT 1725. VSS ARE BP 93/49, HR 122, RR 24, O2 SAT 99%, TEMP 99.2, PAIN IS A 9. PT IS REQUESTING TO HAVE PAIN MEDICATION OTHER THAN TYLENOL, PT WOULD LIKE TO HAVE TRAMADOL IF POSSIBLE. PT WAS EDUCATED ABOUT OPIOIDS AND THE WORSENING OF GI SYMPTOMS. PT FIANCE AT BEDSIDE. PT IS RECEIVING D5 1/2 NS AT 150ML/HR, AND INSULIN GTT AT 5 UNITS/HR, WILL CONTINUE TO MONITOR PER PROTOCOL.
--- NOTE | 2018-06-13 18:04 | NUR ---
BG @1800 IS 72, INCREASED D5 1/2 NS TO 200 MLS/HR.
--- NOTE | 2018-06-13 18:30 | NUR ---
Problems reprioritized. Patient report given, questions answered & plan of care reviewed with MERVIN HANLEY.
[2018-06-13 19:00] VITALS: BP 96/51
[2018-06-13 20:17] LABS: ALBUMIN 3.6 G/DL (3.4-5.0); ANION GAP 14 (8-16); BLOOD UREA NITROGEN 11 MG/DL (7-18); CALCIUM 8.6 MG/DL (8.5-10.1); CHLORIDE 104 MMOL/L (99-107); CREATININE 0.92 MG/DL (0.40-0.90); GLUCOSE 81 MG/DL (70-104); PHOSPHORUS 2.1 MG/DL (2.3-4.5); POTASSIUM 3.5 MMOL/L (3.5-5.1); SODIUM 140 MMOL/L (135-145); TOTAL CARBON DIOXIDE 22.3 MMOL/L (24-32); eGFR 74 ML/MIN
--- NOTE | 2018-06-13 20:25 | NUR ---
Blood sugar: 77, blood pressure 96/53, HR [address] Cuello, blood sugars dropping despite increasing D5 1/2NS to 250ml/hr. Blood sugar at 1900 was 86. Informed of current vitals. Dr. Cuello ordered decrease insulin to 3 units/hour and change IV fluids to D10 NS start at 70ml/hr to a max of 100ml/hr and adjust IV fluids to keep blood sugars 150-200. He also ordered ABG now and draw BMP every 4 hours and add a lipase, BNP, Mg, and UA. Patient is currently restless and anxious, and Dr. Cuello ordered Ativan IV 0.5 mg every 6 hours.
[2018-06-13] MEDS ORDERED: normal saline 500ml IV soln 1,000 ML IV ONE (20:45)
[2018-06-13] MEDS: sucralfate 1 gm tablet PO SCH ×2 (21:00→21:42)
[2018-06-13] MEDS: omega-3 acid ethyl esters 1GM capsule PO SCH (21:03)
[2018-06-13] MEDS: lactobacillus rhamnosus 10,000 MMU CELLS/CAPSULE PO SCH (21:03)
[2018-06-13] MEDS: LORazepam 2 mg/ml vial IV PRN (21:03)
[2018-06-13] MEDS: sodium chloride inj. 154 MEQ in Dextrose 10%-water IV solution 961.5 ML IV SCH (21:43)
[2018-06-13 21:55] LABS: ABG BASE EXCESS -1.6 mmol/L (-2.0-3.0); ABG HCO3 20.4 mmol/L (22.0-26.0); ABG OXYGEN SATURATION 98.2 % (95-98); ABG PCO2 (T) 27.3 mmHg (32.0-45.0); ABG PH (T) 7.492 (7.350-7.450); ABG PO2 (T) 122.1 mmHg (83-108); ALLEN'S TEST Positive; FCOHb 0.3 % (0.5-1.5); FMetHb 0.2 % (0.3-1.12); FO2Hb 97.7 % (94-100); PATIENT TEMPERATURE 37.2; TOTAL HEMOGLOBIN 12.5 G/dl (12.0-16.0)
[2018-06-13] MEDS ORDERED: dextrose 50%-water 50ml dispensing syringe IV PRN ×2 (22:10)
[2018-06-13] MEDS ORDERED: dextrose ORAL solution 15 GM/59 ML bottle PO PRN ×2 (22:10)
[2018-06-13] MEDS ORDERED: glucagon, human recombinant 1mg kit SUBCUT PRN (22:10)
[2018-06-13] MEDS ORDERED: dextrose 50%-water 50ml dispensing syringe IV ONE ×2 (22:19→22:20)
[2018-06-13 23:00] VITALS: BP 94/48
[2018-06-13 23:45] LABS: ALBUMIN 3.1 G/DL (3.4-5.0); ANION GAP 12 (8-16); BLOOD UREA NITROGEN 11 MG/DL (7-18); BUN/CREATININE RATIO 10.4 (6.6-38.0); CALCIUM 8.1 MG/DL (8.5-10.1); CHLORIDE 104 MMOL/L (99-107); CREATININE 1.06 MG/DL (0.40-0.90); GLUCOSE 184 MG/DL (70-104); LIPASE 83 U/L (73-393); MAGNESIUM 1.4 MG/DL (1.5-2.4); POTASSIUM 3.2 MMOL/L (3.5-5.1); SODIUM 141 MMOL/L (135-145); TOTAL CARBON DIOXIDE 24.6 MMOL/L (24-32); eGFR 63 ML/MIN
[2018-06-14] MEDS: insulin Lispro (HumaLOG) vial - multi-dose SQ SCH ×5 (00:14→22:04)
[2018-06-14] MEDS: normal saline 1000ml 1,000 ML IV SCH ×4 (02:55→21:52)
[2018-06-14 03:00] VITALS: BP 115/63
[2018-06-14] MEDS: LORazepam 2 mg/ml vial IV PRN (03:39)
[2018-06-14 05:17] LABS: URINE HCG NEGATIVE (NEG)
[2018-06-14 05:23] LABS: CLARITY,URINE CLEAR (Clear); COLOR,URINE YELLOW (Yellow); GLUCOSE, URINE >=1000 mg/dl (Neg); KETONES,URINE >=80 mg/dl (Neg); LEUKOCYTE ESTERASE ,URINE NEGATIVE (Neg); NITRITES, URINE NEGATIVE (Neg); OCCULT BLOOD,URINE LARGE (Neg); PROTEIN,URINE TRACE mg/dl (Neg); UROBILINOGEN,URINE 0.2 E.U/dL (0.2-1.0)
[2018-06-14 05:29] LABS: UA COLLECTION TYPE NON-SPECIFIED
[2018-06-14 05:41] LABS: BACTERIA,URINE 1+ /HPF (Neg); WBC,URINE NONE SEEN /HPF (0-4)
[2018-06-14 05:42] LABS: HYALINE CASTS 0-3 /LPF (NEGATIVE); MUCUS STRANDS FEW /LPF (Neg); SQUAMOUS EPITHELIAL CELL,UR FEW /LPF (FEW)
--- NOTE | 2018-06-14 06:15 | NUR ---
Patient in room PCU 3019. I have received report from Gene JEFFRIES and had the opportunity to ask questions and assume patient care.
--- NOTE | 2018-06-14 06:34 | NUR ---
Problems reprioritized. Patient report given, questions answered & plan of care reviewed with MERVIN Arriaga.
[2018-06-14 06:43] LABS: BASOPHILS % (AUTO) 0.6 % (0-1); EOSINOPHILS # (AUTO) 0.2 X10'3 (0-0.9); EOSINOPHILS % (AUTO) 3.5 % (0-6); HEMATOCRIT 34.6 % (35.0-45.0); HEMOGLOBIN 11.6 g/dl (12.0-16.0); LYMPHOCYTES # (AUTO) 0.9 X10'3 (1.1-4.8); LYMPHOCYTES % (AUTO) 15.1 % (21-51); MEAN CORPUSCULAR HEMOGLOBIN 31.4 PG (27.0-31.0); MEAN CORPUSCULAR HGB CONC 33.5 % (33.0-36.5); MEAN CORPUSCULAR VOLUME 93.7 FL (78-98); MEAN PLATELET VOLUME 7.1 FL (7.4-10.4); MONOCYTES # (AUTO) 0.6 X10'3 (0-0.9); MONOCYTES % (AUTO) 10.2 % (2-12); NEUTROPHILS # (AUTO) 4.1 X10'3 (1.8-7.7); NEUTROPHILS % (AUTO) 70.6 % (42-75); PLATELET COUNT 314 X10'3 (140-440); RED BLOOD COUNT 3.69 X10'6 (4.20-5.60); RED CELL DISTRIBUTION WIDTH 13.3 % (11.5-14.5); WHITE BLOOD COUNT 5.9 X10'3 (4.5-11.0)
[2018-06-14 07:00] VITALS: BP 106/61
[2018-06-14 07:13] LABS: ALBUMIN 3.1 G/DL (3.4-5.0); ANION GAP 16 (8-16); BLOOD UREA NITROGEN 18 MG/DL (7-18); BUN/CREATININE RATIO 17.1 (6.6-38.0); CALCIUM 8.4 MG/DL (8.5-10.1); CHLORIDE 99 MMOL/L (99-107); CREATININE 1.05 MG/DL (0.40-0.90); PHOSPHORUS 4.5 MG/DL (2.3-4.5); POTASSIUM 4.5 MMOL/L (3.5-5.1); SODIUM 136 MMOL/L (135-145); TOTAL CARBON DIOXIDE 21.5 MMOL/L (24-32); eGFR 64 ML/MIN
[2018-06-14 07:22] LABS: GLUCOSE 493 MG/DL (70-104)
--- NOTE | 2018-06-14 07:33 | NUR ---
Paged Dr. Newell for Critical Glucose 493 PAGER ID: [phone] MESSAGE: Steven Aguilar RN [phone] Zena Sanders: critical glucose 493. Anion Gap 16 trending up. CO2 21.5 trending down. Patient c/o excessive thirst. Thank you.
[2018-06-14] MEDS: K and/or MAG REPLACEMENT MC SCH (08:00)
[2018-06-14] MEDS ORDERED: ESCITALOPRAM OXALATE 10 MG PO SCH (08:00)
[2018-06-14] MEDS: citalopram 20mg tablet PO SCH (08:03)
[2018-06-14] MEDS: omega-3 acid ethyl esters 1GM capsule PO SCH ×2 (08:05→20:07)
[2018-06-14] MEDS: potassium Cl 20 mEq SR tablet PO PRN ×2 (08:06→15:33)
[2018-06-14] MEDS: pantoprazole 40mg Tablet.DR PO SCH (08:06)
[2018-06-14] MEDS: lactobacillus rhamnosus 10,000 MMU CELLS/CAPSULE PO SCH ×2 (08:07→20:06)
[2018-06-14] MEDS: docusate sod 100mg capsule PO SCH (08:07)
[2018-06-14] MEDS: sucralfate 1 gm tablet PO SCH ×4 (08:32→22:06)
[2018-06-14] MEDS: insulin glargine (Lantus) pen - multi-dose SQ SCH ×2 (08:37→22:03)
[2018-06-14] MEDS: traMADol 50MG tablet PO PRN ×3 (10:22→20:07)
[2018-06-14] MEDS: sodium chloride inj. 154 MEQ in Dextrose 10%-water IV solution 961.5 ML IV SCH (10:53)
[2018-06-14 11:00] VITALS: BP 95/57
[2018-06-14 15:00] VITALS: BP 107/62
--- NOTE | 2018-06-14 17:19 | NUR ---
Malnutrition/DM consults: Pt admit w/ DKA hx T1DM A1C 10.4. Pt seen by CRUZ for written/verbal DM ed; RD contact information provided. RD encouraged pt to find CDE and quality manager as well as attend CDE course. Pt shares she's "a pro at it" and reports stopping her insulin since she didn't feel so well. Reports no questions or concerns. RD encouraged pt to take insulin even when sick given T1DM and to follow sick day guidelines listed in handout. Pt PO 100% carb controlled diet meeting needs; reverted to clears AM per MD per pt request from RN report today. Pt has abdominal pain also likely from GLU up to 493 today from 52 previously; possibly brittle T1DM given 367-52 GLU and once off insulin drip GLU increased to 493. RD d/w RN regarding restarting insulin drip possibly per MD approval in order to prevent returning to DKA. LBM 06/13. At this time pt does not meet minimum 2 criteria for malnutrition given 100% prior PO, no weakness, and no edema. Will continue to monitor. Rec: 1. advance to carb controlled diet 2. monitor for additional hyperglycemia protocol needs w/ GLU 493 3. weekly wt Addendum: 06/14/18 at [address] Amended: Links added.
--- NOTE | 2018-06-14 17:50 | NUR ---
Dr. Newell notified for diet change and nicotine patch request. PAGER ID: [phone] MESSAGE: Steven Aguilar RN [phone] Zena Sanders: Pt refusing clear liquid diet. Pt requests regular diet. Pt states no nausea or vomiting. Pt also requesting nicotine patch. Thank you.
[2018-06-14 18:00] VITALS: BP 112/55
--- NOTE | 2018-06-14 18:10 | NUR ---
Patient in room PCU 3019. I have received report from Steven JEFFRIES and had the opportunity to ask questions and assume patient care.
--- NOTE | 2018-06-14 18:15 | NUR ---
Problems reprioritized. Patient report given, questions answered & plan of care reviewed with Linda JEFFRIES.
[2018-06-14] MEDS ORDERED: nicotine 14mg patch - 24hr TD SCH (18:19)
--- NOTE | 2018-06-14 18:38 | NUR ---
Entered new orders per Dr. Newell. Cancelled clear liquid diet and started carbohydrate controlled diet. Also entered order for Nicotine patch 14mg Q24h. Received these orders via telephone.
[2018-06-14] MEDS ORDERED: insulin glargine (Lantus) pen - multi-dose SQ SCH (21:00)
[2018-06-14 22:00] VITALS: BP 103/62
[2018-06-15] MEDS: sodium chloride inj. 154 MEQ in Dextrose 10%-water IV solution 961.5 ML IV SCH (01:11)
[2018-06-15 02:00] VITALS: BP 96/63
--- NOTE | 2018-06-15 06:29 | NUR ---
Problems reprioritized. Patient report given, questions answered & plan of care reviewed with Radha JEFFRIES.
[2018-06-15 06:44] VITALS: BP 91/49
[2018-06-15 07:29] LABS: BASOPHILS % (AUTO) 0.8 % (0-1); EOSINOPHILS # (AUTO) 0.2 X10'3 (0-0.9); EOSINOPHILS % (AUTO) 5.4 % (0-6); HEMATOCRIT 30.9 % (35.0-45.0); HEMOGLOBIN 10.7 g/dl (12.0-16.0); LYMPHOCYTES # (AUTO) 1.3 X10'3 (1.1-4.8); LYMPHOCYTES % (AUTO) 37.3 % (21-51); MEAN CORPUSCULAR HEMOGLOBIN 32.6 PG (27.0-31.0); MEAN CORPUSCULAR HGB CONC 34.6 % (33.0-36.5); MEAN CORPUSCULAR VOLUME 94.2 FL (78-98); MEAN PLATELET VOLUME 7.3 FL (7.4-10.4); MONOCYTES # (AUTO) 0.5 X10'3 (0-0.9); MONOCYTES % (AUTO) 14.3 % (2-12); NEUTROPHILS # (AUTO) 1.6 X10'3 (1.8-7.7); NEUTROPHILS % (AUTO) 42.2 % (42-75); PLATELET COUNT 274 X10'3 (140-440); RED BLOOD COUNT 3.28 X10'6 (4.20-5.60); RED CELL DISTRIBUTION WIDTH 12.3 % (11.5-14.5); WHITE BLOOD COUNT 3.6 X10'3 (4.5-11.0)
[2018-06-15 07:35] LABS: ALBUMIN 2.7 G/DL (3.4-5.0); ANION GAP 11 (8-16); BLOOD UREA NITROGEN 11 MG/DL (7-18); BUN/CREATININE RATIO 17.2 (6.6-38.0); CALCIUM 7.9 MG/DL (8.5-10.1); CHLORIDE 105 MMOL/L (99-107); CREATININE 0.64 MG/DL (0.40-0.90); GLUCOSE 136 MG/DL (70-104); POTASSIUM 3.6 MMOL/L (3.5-5.1); SODIUM 141 MMOL/L (135-145); TOTAL CARBON DIOXIDE 24.6 MMOL/L (24-32); eGFR > 90 ML/MIN
[2018-06-15] MEDS: K and/or MAG REPLACEMENT MC SCH (08:00)
[2018-06-15] MEDS: docusate sod 100mg capsule PO SCH (08:00)
[2018-06-15] MEDS: sucralfate 1 gm tablet PO SCH (08:25)
[2018-06-15] MEDS: omega-3 acid ethyl esters 1GM capsule PO SCH (08:25)
[2018-06-15] MEDS: citalopram 20mg tablet PO SCH (08:26)
[2018-06-15] MEDS: pantoprazole 40mg Tablet.DR PO SCH (08:26)
[2018-06-15] MEDS: lactobacillus rhamnosus 10,000 MMU CELLS/CAPSULE PO SCH (08:26)
[2018-06-15] MEDS: traMADol 50MG tablet PO PRN (08:28)
[2018-06-15] MEDS: insulin Lispro (HumaLOG) vial - multi-dose SQ SCH (08:34)
[2018-06-15] MEDS: normal saline 1000ml 1,000 ML IV SCH (08:37)
[2018-06-15] MEDS: insulin glargine (Lantus) pen - multi-dose SQ SCH (08:42)
[2018-06-15] MEDS ORDERED: TRAM50TA2 PO (10:20)
[2018-06-15] MEDS ORDERED: LANTUS SQ (10:20)
[2018-06-15] MEDS ORDERED: CITA-124 PO (10:20)
== END 2018-06-15 11:00 | disposition home or self-care (01) | DRG 639 ==
LOC: ER 13:18 → ED HOLD 14:55 → PCU 3S 17:20
PROVIDERS: ADMIT Hospitalist; ATTEND Family Medicine
DX: E10.10 Type 1 diabetes mellitus with ketoacidosis without coma (principal); E86.0 Dehydration; G89.29 Other chronic pain; Z87.11 Personal history of peptic ulcer disease; Z91.19 Patient's noncompliance with other medical treatment and regimen; Z88.1 Allergy status to other antibiotic agents; Z79.899 Other long term (current) drug therapy
CPT/HCPCS: 36415; 36600; 71045; 80048; 80053; 81001; 81025; 82803; 82948; 83690; 83735; 84100; 85018; 85025; 85610; 87070; 96374; 99285; G0378; J1200; J1815; J1885; J2060; J2405; J2765; J7030; J7131

== ENCOUNTER 2018-10-14 05:04 | Emergency (ER) | payer BC ==
[~2018-10-14] VITALS: Ht 160 cm; Wt 52.7 kg
[~2018-10-14 05:04] MED LIST changes: +CITA-124 PO; -ESCI5TAB PO; -HYDR-3972 PO; -OMEG1CAP PO; -PANT-47 PO; -SUCR1TAB34 PO; +TRAM50TA2 PO
[2018-10-14 05:26] VITALS: BP 132/85
[2018-10-14] MEDS ORDERED: AZIT-72 PO (05:49)
== END 2018-10-14 05:57 | disposition home or self-care (01) ==
LOC: ER 05:05
DX: H66.91 Otitis media, unspecified, right ear (principal); E11.9 Type 2 diabetes mellitus without complications; Z88.1 Allergy status to other antibiotic agents; Z79.4 Long term (current) use of insulin; Z79.899 Other long term (current) drug therapy
CPT/HCPCS: 99283

== ENCOUNTER 2018-10-23 12:49 | Emergency (ER) | payer BC, MEDICAID ==
[~2018-10-23] VITALS: Ht 160 cm; Wt 47.0 kg
[~2018-10-23 12:49] MED LIST changes: +AZIT-72 PO
[2018-10-23 13:01] VITALS: BP 112/61
[2018-10-23] MEDS ORDERED: CLIN150C2 PO (13:13)
[2018-10-23] MEDS ORDERED: ONDA4TAB6 PO (13:13)
[2018-10-23] MEDS ORDERED: HYDR-4353 PO (13:13)
[2018-10-23] MEDS ORDERED: PRED20TA PO (13:13)
== END 2018-10-23 13:27 | disposition home or self-care (01) ==
LOC: ER 12:50
DX: S02.5XXA Fracture of tooth (traumatic), initial encounter for closed fracture (principal); E11.9 Type 2 diabetes mellitus without complications; Z79.899 Other long term (current) drug therapy; Z79.4 Long term (current) use of insulin; Z88.1 Allergy status to other antibiotic agents; X58.XXXA Exposure to other specified factors, initial encounter; Y93.89 Activity, other specified; Y92.89 Other specified places as the place of occurrence of the external cause; Y99.9 Unspecified external cause status
CPT/HCPCS: 99283

== ENCOUNTER 2018-10-29 18:03 | Emergency (ER) | payer MEDICAID ==
[~2018-10-29] VITALS: Ht 160 cm; Wt 50.0 kg
[~2018-10-29 18:03] MED LIST changes: +CLIN150C2 PO; +HYDR-4353 PO; +ONDA4TAB6 PO; +PRED20TA PO
[2018-10-29] MEDS ORDERED: normal saline 1000ML IV soln IV ONE (20:00)
[2018-10-29 20:06] LABS: BASOPHILS % (AUTO) 0.8 % (0-1); EOSINOPHILS # (AUTO) 0.3 X10'3 (0-0.9); EOSINOPHILS % (AUTO) 5.5 % (0-6); HEMATOCRIT 34.1 % (35.0-45.0); HEMOGLOBIN 11.4 g/dl (12.0-16.0); LYMPHOCYTES # (AUTO) 0.7 X10'3 (1.1-4.8); MEAN CORPUSCULAR HEMOGLOBIN 32.3 PG (27.0-31.0); MEAN CORPUSCULAR HGB CONC 33.4 g/dL (33.0-36.5); MEAN CORPUSCULAR VOLUME 96.9 FL (78-98); MEAN PLATELET VOLUME 7.1 FL (7.4-10.4); MONOCYTES # (AUTO) 0.3 X10'3 (0-0.9); MONOCYTES % (AUTO) 6.9 % (2-12); NEUTROPHILS # (AUTO) 3.7 X10'3 (1.8-7.7); NEUTROPHILS % (AUTO) 72.8 % (42-75); PLATELET COUNT 287 X10'3 (140-440); RED BLOOD COUNT 3.52 X10'6 (4.20-5.60); RED CELL DISTRIBUTION WIDTH 14.7 % (11.5-14.5)
[2018-10-29 20:08] LABS: ANION GAP 9 (8-16); CHLORIDE 90 MMOL/L (99-107); POTASSIUM 4.7 MMOL/L (3.5-5.1); SODIUM 127 MMOL/L (135-145); TOTAL CARBON DIOXIDE 27.9 MMOL/L (24-32)
[2018-10-29] MEDS ORDERED: ondansetron/PF 4mg/2ml inj IV ONE (20:10)
[2018-10-29] MEDS ORDERED: ketorolac tromethamine 15mg/ml inj. IV ONE (20:10)
--- NOTE | 2018-10-29 20:37 | NUR ---
Dr. Ramirez notified patient refused Toradol, states "it doesn't work", reports causes headache and stomach cramping, stated only Morphine and Dilaudid work. Per Dr. Ramirez, he will not order Morphine or Dilaudid, received verbal orders for Pepcid and Protonix.
[2018-10-29 20:40] LABS: CLARITY,URINE CLEAR (Clear); COLOR,URINE YELLOW (Yellow); GLUCOSE, URINE 250 mg/dl (Neg); KETONES,URINE 15 mg/dl (Neg); LEUKOCYTE ESTERASE ,URINE NEGATIVE (Neg); NITRITES, URINE NEGATIVE (Neg); OCCULT BLOOD,URINE NEGATIVE (Neg); PH,URINE 6.5 (4.8-8.0); PROTEIN,URINE NEGATIVE (Neg); UROBILINOGEN,URINE 0.2 E.U/dL (0.2-1.0)
[2018-10-29] MEDS ORDERED: pantoprazole 40 MG vial IV ONE (20:40)
[2018-10-29] MEDS ORDERED: famotidine/PF 10 mg/ml inj IV ONE (20:40)
[2018-10-29 20:41] LABS: UA COLLECTION TYPE CLN CATCH MIDSTREAM
[2018-10-29 20:45] LABS: GLUCOSE 770 MG/DL (70-104)
[2018-10-29 20:46] LABS: ALBUMIN 3.2 G/DL (3.4-5.0); ALBUMIN/GLOBULIN RATIO 1.1 (1.1-1.5); BILIRUBIN,TOTAL 0.7 MG/DL (0.1-1.0); BLOOD UREA NITROGEN 17 MG/DL (7-18); BUN/CREATININE RATIO 20.7 (6.6-38.0); CALCIUM 8.8 MG/DL (8.5-10.1); CREATININE 0.82 MG/DL (0.40-0.90); MAGNESIUM 1.7 MG/DL (1.5-2.4); TOTAL PROTEIN 6.2 G/DL (6.4-8.2); eGFR 85 ML/MIN
[2018-10-29 20:47] LABS: ALANINE AMINOTRANSFERASE 46 U/L (12-78); ALKALINE PHOSPHATASE 159 IU/L (46-116); ASPARTATE AMINO TRANSFERASE 47 U/L (10-37)
[2018-10-29 20:48] LABS: URINE HCG NEGATIVE (NEG)
[2018-10-29] MEDS ORDERED: insulin regular, human 10 units/0.1 ml syringe IV ONE (20:50)
[2018-10-29 21:10] LABS: PHOSPHORUS 4.4 MG/DL (2.3-4.5)
[2018-10-29] MEDS ORDERED: LANTUS SQ (21:56)
[2018-10-29] MEDS ORDERED: CITA20TA19 PO (21:56)
[2018-10-29] MEDS ORDERED: METF500T PO (21:58)
[2018-10-29] MEDS ORDERED: PANT20TA2 PO (21:58)
[2018-10-29] MEDS ORDERED: METO-292 PO (21:59)
[2018-10-29] MEDS ORDERED: HYDR-4353 PO (22:01)
[2018-10-29] MEDS ORDERED: CHOL10002 PO (22:02)
[2018-10-29] MEDS ORDERED: ONDA4TAB6 PO (22:17)
[2018-10-29 23:32] VITALS: BP 110/66
== END 2018-10-29 23:42 | disposition home or self-care (01) ==
LOC: ER 18:04
DX: E10.65 Type 1 diabetes mellitus with hyperglycemia (principal); K29.00 Acute gastritis without bleeding; Z88.1 Allergy status to other antibiotic agents; Z79.4 Long term (current) use of insulin; Z79.84 Long term (current) use of oral hypoglycemic drugs; Z79.899 Other long term (current) drug therapy
CPT/HCPCS: 36415; 71045; 80053; 81003; 81025; 83036; 83605; 83735; 84100; 84145; 85025; 87040; 96361; 96374; 96375; 99284; C9113; J1815; J2405; J3490; J7030

== ENCOUNTER 2018-11-16 23:11 | Emergency (ER) | payer MEDICAID ==
[~2018-11-16] VITALS: Ht 160 cm; Wt 46.8 kg
[~2018-11-16 23:11] MED LIST changes: -AZIT-72 PO; +CHOL10002 PO; -CITA-124 PO; +CITA20TA19 PO; -CLIN150C2 PO; -DOCU-28 PO; -HYDR-4353 PO; +METF500T PO; +METO-292 PO; +PANT20TA2 PO; -PANT40TA4 PO; -PRED20TA PO; -SUCR1TAB PO; -TRAM50TA2 PO
[2018-11-17] MEDS ORDERED: HYDROcodone/acetaminophen 5mg/325mg tablet PO ONE (00:25)
[2018-11-17] MEDS ORDERED: HYDR-3965 PO (00:37)
[2018-11-17 00:52] VITALS: BP 110/60
== END 2018-11-17 00:55 | disposition home or self-care (01) ==
LOC: ER 23:12
DX: S02.5XXA Fracture of tooth (traumatic), initial encounter for closed fracture (principal); E11.9 Type 2 diabetes mellitus without complications; Z88.1 Allergy status to other antibiotic agents; Z79.84 Long term (current) use of oral hypoglycemic drugs; Z79.4 Long term (current) use of insulin; Z79.899 Other long term (current) drug therapy; X58.XXXA Exposure to other specified factors, initial encounter; Y93.89 Activity, other specified; Y92.89 Other specified places as the place of occurrence of the external cause; Y99.8 Other external cause status
CPT/HCPCS: 41899; 99284

== ENCOUNTER 2018-11-25 16:52 | Emergency (ER) | payer MEDICAID ==
[~2018-11-25] VITALS: Ht 177.8 cm; Wt 54.5 kg
[2018-11-25 17:39] LABS: BASOPHILS # (AUTO) 0.1 X10'3 (0-0.2); EOSINOPHILS % (AUTO) 0.5 % (0-6); HEMATOCRIT 40.9 % (35.0-45.0); HEMOGLOBIN 14.1 g/dl (12.0-16.0); LYMPHOCYTES # (AUTO) 1.8 X10'3 (1.1-4.8); LYMPHOCYTES % (AUTO) 22.1 % (21-51); MEAN CORPUSCULAR HEMOGLOBIN 33.1 PG (27.0-31.0); MEAN CORPUSCULAR HGB CONC 34.6 g/dL (33.0-36.5); MEAN CORPUSCULAR VOLUME 95.7 FL (78-98); MEAN PLATELET VOLUME 6.2 FL (7.4-10.4); MONOCYTES # (AUTO) 0.4 X10'3 (0-0.9); MONOCYTES % (AUTO) 4.7 % (2-12); NEUTROPHILS # (AUTO) 5.9 X10'3 (1.8-7.7); NEUTROPHILS % (AUTO) 71.7 % (42-75); PLATELET COUNT 586 X10'3 (140-440); RED BLOOD COUNT 4.28 X10'6 (4.20-5.60); WHITE BLOOD COUNT 8.3 X10'3 (4.5-11.0)
[2018-11-25] MEDS ORDERED: LORazepam 2 mg/ml vial IV ONE (17:40)
[2018-11-25] MEDS ORDERED: ondansetron/PF 4mg/2ml inj IV ONE ×2 (17:40→19:20)
[2018-11-25] MEDS ORDERED: normal saline 1000ML IV soln IVB ONE (17:40)
[2018-11-25 17:56] LABS: HCG SERUM QL NEGATIVE
[2018-11-25 17:58] LABS: ALANINE AMINOTRANSFERASE 46 U/L (12-78); ALBUMIN 4.2 G/DL (3.4-5.0); ALKALINE PHOSPHATASE 141 IU/L (46-116); AMYLASE 79 U/L (25-115); ANION GAP 24 (8-16); ASPARTATE AMINO TRANSFERASE 26 U/L (10-37); BILIRUBIN,TOTAL 0.4 MG/DL (0.1-1.0); BLOOD UREA NITROGEN 18 MG/DL (7-18); BUN/CREATININE RATIO 13.8 (6.6-38.0); CALCIUM 9.6 MG/DL (8.5-10.1); CHLORIDE 93 MMOL/L (99-107); GLUCOSE 146 MG/DL (70-104); LIPASE 74 U/L (73-393); POTASSIUM 4.2 MMOL/L (3.5-5.1); SODIUM 134 MMOL/L (135-145); TOTAL CARBON DIOXIDE 17.4 MMOL/L (24-32); TOTAL PROTEIN 8.6 G/DL (6.4-8.2); eGFR 50 ML/MIN
[2018-11-25 18:32] LABS: PLATELET ESTIMATE INCREASED
[2018-11-25 18:33] LABS: POLYCHROMASIA FEW
[2018-11-25 18:34] LABS: STOMATOCYTES 3+
--- NOTE | 2018-11-25 18:34 | NUR ---
Pts mother and boyfriend at bedside. Boyfriend reports pt was unresponsive at home and that is when they called the ambulance. He reprots Pt had told him through the day that her sugars were runing in the 250's.
--- NOTE | 2018-11-25 18:44 | NUR ---
pt reports to me that earlier today she fell while getting out of bed and hit the right side of her head on the wood floor. Boyfriend states when he found her she was lying flat on her back in that same area. Pt has GARCES of 7 out of 10. Mid abdomen pain of 8 out of 10 continues. Pt was released from [facility] only a few days ago and had been admitted for DKA.
[2018-11-25 18:51] VITALS: BP 104/66
[2018-11-25] MEDS ORDERED: acetaminophen 325mg tablet PO ONE (19:10)
--- NOTE | 2018-11-25 19:17 | NUR ---
dr. fonseca updated of pt's burgess and hitting head on her foor when fell earlier.
[2018-11-25] MEDS ORDERED: ONDA4TAB6 PO (19:43)
--- NOTE | 2018-11-25 19:45 | NUR ---
dr fonseca talking with Pt and family. He reports to me this Pt is well known to him. MD reports no significant new findings with labs work today. Pt just given adtl zofran 4 mg and tylenol
--- NOTE | 2018-11-25 19:53 | NUR ---
PTS BOYFRIEND REPORTS CONCERN ABOUT PT BEING DISCHARGED AND THAT MD NEVER EVALUATED HER HEAD AND NECK PAIN. I TOLD DR. ANDERS AND HE STATES PT IS NEUROLOGICALLY INTACT AND HE HAS NO INDICATION TO SCAN OR IMAGE HEAD AT THIS TIME AND THAT SHE IS APPROPRIATE FOR DISCHARGE.
--- NOTE | 2018-11-25 20:01 | NUR ---
PT'S FAMILY MEMBER REPORTS FRUSTRATION THAT MD HAS NOT EVALUATED HER HEAD "HE DID NOT EVEN TOUCH HER". FAMILY AND PT WANT TO TALK WITH MD PRIOR TO DC.
--- NOTE | 2018-11-25 20:06 | NUR ---
spoke with dr. fonseca due to the fact primary rn romain verbalized to me rc, that patient refuses to be dc'd until dr. fonseca comes in to talk, dr. fonseca verbalized that he would address the concerns
--- NOTE | 2018-11-25 20:47 | NUR ---
DR. ANDERS NOW IN ROOM TALKING WITH PT AND FAMILY THEY HAVE QUESTIONS ABOUT HER SYNCOPAL EPISODE AND HER HITTING HER HEAD. THEY ARE NOT SO CONCERNED ABOUT HER N/V/D THAT HAS BEEN A PROBLEM IN THE PAST. THEY HAD REQUESTED TO TALK WITH NURSING GLOBAL MARKETING COORDINATOR. I CALLED [facility], BUT HE STATED THEY NEED TO TALK WITH CHARGE, WENDY. WENDY UPDATED AND WILL TALK WITH THEM SHORTLY.
--- NOTE | 2018-11-25 21:15 | NUR ---
pts mother given number for patient relations/administration and for medical records . car manager Abel talking with Pt and Mother.
== END 2018-11-25 21:26 | disposition home or self-care (01) ==
LOC: ER 16:53
DX: E86.0 Dehydration (principal); R11.2 Nausea with vomiting, unspecified; R19.7 Diarrhea, unspecified; R30.0 Dysuria; E11.9 Type 2 diabetes mellitus without complications; Z88.1 Allergy status to other antibiotic agents; Z79.4 Long term (current) use of insulin; Z79.84 Long term (current) use of oral hypoglycemic drugs; Z79.899 Other long term (current) drug therapy
CPT/HCPCS: 36415; 80053; 82150; 82948; 83690; 84703; 85025; 85610; 96361; 96374; 96375; 96376; 99283; J2060; J2405; J7030

== ENCOUNTER 2018-12-01 13:02 | Emergency (ER) | payer MEDICAID ==
[~2018-12-01] VITALS: Ht 160 cm; Wt 54.5 kg
[2018-12-01 13:26] VITALS: BP 94/58
[2018-12-01] MEDS ORDERED: CHLO473M3 PO (15:04)
[2018-12-01] MEDS ORDERED: HYDR-4353 PO (15:04)
== END 2018-12-01 15:44 | disposition home or self-care (01) ==
LOC: ER 13:02
DX: S02.5XXA Fracture of tooth (traumatic), initial encounter for closed fracture (principal); F17.200 Nicotine dependence, unspecified, uncomplicated; E11.9 Type 2 diabetes mellitus without complications; Z88.1 Allergy status to other antibiotic agents; Z79.4 Long term (current) use of insulin; Z79.84 Long term (current) use of oral hypoglycemic drugs; Z79.899 Other long term (current) drug therapy; W20.8XXA Other cause of strike by thrown, projected or falling object, initial encounter; Y93.89 Activity, other specified; Y92.89 Other specified places as the place of occurrence of the external cause; Y99.8 Other external cause status
CPT/HCPCS: 99283

== ENCOUNTER 2018-12-26 00:28 | Emergency (ER) | payer MEDICAID ==
[~2018-12-26] VITALS: Ht 160 cm; Wt 50.9 kg
[~2018-12-26 00:28] MED LIST changes: +GABA-530 PO; -LACT1CAP26 PO; -METF500T PO; -METO-292 PO; +NAPR-56 PO; -ONDA4TAB6 PO
[2018-12-26] MEDS ORDERED: CLIN150C8 PO (01:38)
[2018-12-26 01:51] VITALS: BP 121/75
== END 2018-12-26 01:54 | disposition home or self-care (01) ==
LOC: ER 00:28
DX: S03.2XXA Dislocation of tooth, initial encounter (principal); E11.9 Type 2 diabetes mellitus without complications; Z88.1 Allergy status to other antibiotic agents; Z88.5 Allergy status to narcotic agent; Z79.899 Other long term (current) drug therapy; Z79.4 Long term (current) use of insulin; X58.XXXA Exposure to other specified factors, initial encounter; Y93.89 Activity, other specified; Y92.89 Other specified places as the place of occurrence of the external cause; Y99.8 Other external cause status
CPT/HCPCS: 99283

== ENCOUNTER 2019-01-16 17:58 | Emergency (ER) | payer MEDICAID ==
[~2019-01-16] VITALS: Ht 160 cm; Wt 42.0 kg
[~2019-01-16 17:58] MED LIST changes: +CLIN150C8 PO; -NAPR-56 PO
[2019-01-16] MEDS ORDERED: HYDR-3965 PO (19:12)
[2019-01-16 19:35] VITALS: BP 106/66
== END 2019-01-16 19:20 | disposition home or self-care (01) ==
LOC: ER 17:59
DX: K08.89 Other specified disorders of teeth and supporting structures (principal); E11.9 Type 2 diabetes mellitus without complications; Z88.1 Allergy status to other antibiotic agents; Z79.2 Long term (current) use of antibiotics; Z79.4 Long term (current) use of insulin; Z79.899 Other long term (current) drug therapy
CPT/HCPCS: 99283

== ENCOUNTER 2019-01-20 15:49 | Emergency (ER) | payer MEDICAID ==
[~2019-01-20] VITALS: Ht 160 cm; Wt 47.7 kg
[~2019-01-20 15:49] MED LIST changes: +HYDR-3965 PO
[2019-01-20] MEDS ORDERED: NAPR500T6 PO (16:15)
[2019-01-20] MEDS ORDERED: TRAM50TA2 PO (16:15)
[2019-01-20 16:26] VITALS: BP 111/66
== END 2019-01-20 16:29 | disposition home or self-care (01) ==
LOC: ER 15:49
DX: K02.9 Dental caries, unspecified (principal); E11.9 Type 2 diabetes mellitus without complications; G89.29 Other chronic pain; Z88.1 Allergy status to other antibiotic agents; Z88.6 Allergy status to analgesic agent; Z79.899 Other long term (current) drug therapy; Z79.4 Long term (current) use of insulin
CPT/HCPCS: 99283